=== PATIENT | female | born 1995 | race Caucasian/White ===

== ENCOUNTER → 2024-07-12 | Outpatient (CLI) | payer OTHER | END | disposition home or self-care (01) | LOC: TOM 10:37 | DX: N70.11 Chronic salpingitis (principal) ==

== ENCOUNTER 2024-11-12 09:02 | Outpatient (CLI) | payer OTHER | END 2024-11-12 09:06 | disposition home or self-care (01) | LOC: PRENATAL 09:02 | PROVIDERS: ATTEND Obstetrics & Gynecology Maternal & Fetal Medicine | DX: O36.80X0 Pregnancy with inconclusive fetal viability, not applicable or unspecified (principal); Z36.9 Encounter for antenatal screening, unspecified; Z36.82 Encounter for antenatal screening for nuchal translucency; O99.891 Other specified diseases and conditions complicating pregnancy; O24.419 Gestational diabetes mellitus in pregnancy, unspecified control; Z3A.12 12 weeks gestation of pregnancy ==

== ENCOUNTER → 2025-01-06 07:59 | Outpatient (CLI) | payer OTHER | END | disposition home or self-care (01) | LOC: PRENATAL 07:59 | PROVIDERS: ATTEND Obstetrics & Gynecology Maternal & Fetal Medicine | DX: O44.00 Complete placenta previa NOS or without hemorrhage, unspecified trimester (principal); O24.419 Gestational diabetes mellitus in pregnancy, unspecified control; Z3A.20 20 weeks gestation of pregnancy ==

== ENCOUNTER 2025-03-04 08:29 | Outpatient (CLI) | payer OTHER | END 2025-03-04 08:30 | disposition home or self-care (01) | LOC: PRENATAL 08:29 | PROVIDERS: ATTEND Obstetrics & Gynecology Maternal & Fetal Medicine | DX: O26.849 Uterine size-date discrepancy, unspecified trimester (principal); O24.419 Gestational diabetes mellitus in pregnancy, unspecified control; Z3A.28 28 weeks gestation of pregnancy ==

== ENCOUNTER → 2025-04-15 13:54 | Outpatient (CLI) | payer OTHER | END | disposition home or self-care (01) | LOC: PRENATAL 13:54 | PROVIDERS: ATTEND Obstetrics & Gynecology Maternal & Fetal Medicine | DX: O26.849 Uterine size-date discrepancy, unspecified trimester (principal); O36.8199 Decreased fetal movements, unspecified trimester, other fetus; O24.419 Gestational diabetes mellitus in pregnancy, unspecified control; Z3A.35 35 weeks gestation of pregnancy ==

== ENCOUNTER 2025-05-10 00:15 | Outpatient (CLI) | payer OTHER ==
[2025-05-09 23:19] VITALS: BP 129/84
[2025-05-10] MEDS ORDERED: CHILDREN'S ASPI81 MG PO (00:41)
[2025-05-10] MEDS ORDERED: PRENATAL CAPLE1 EAC1 PO (00:41)
[2025-05-10] MEDS ORDERED: PROMETHAZINE HCL 25 MG/ML AMPUL IV PRN (00:45)
[2025-05-10] MEDS ORDERED: SODIUM CHLORIDE 0.45 % 500 ML IV SCH (00:45)
[2025-05-10] MEDS ORDERED: FAMOTIDINE/PF 20 MG/2 ML VIAL IV PUSH SCH (00:45)
[2025-05-10 01:43] LABS: BASO % 0.3 % (0.1-1.2); EOS # 0.06 (0.04-0.54); EOS % 0.6 % (0.7-7.0); LYMPH # 1.42 (1.18-3.74); LYMPH % 13.6 % (19.3-53.1); MEAN PLATELET VOLUME 11.70 fl (9.4-12.4); MONO # 0.62 (0.24-0.82); MONO % 5.9 % (4.7-12.5); NEUT # 8.28 (1.56-6.13); NEUT % 79.2 % (34.0-71.1); RED CELL DISTRIBUTION WIDTH 16.6 % (11.6-14.4)
[2025-05-10 02:14] LABS: URINE APPEARANCE Cloudy; URINE BILIRRUBIN Negative (NEGATIVE); URINE BLOOD Negative; URINE COLOR Yellow; URINE GLUCOSE Negative (NEGATIVE); URINE KETONE Negative (NEGATIVE); URINE LEUKOCYTE Large; URINE NITRATE Negative; URINE PROTEIN 30 (NEGATIVE); URINE UROBILINOGEN 0.2 E.U./dl
[2025-05-10 02:17] LABS: URINE BACTERIA 2681.8 uL (0.0-1933); URINE CAST 7.03 uL (0.0-1.40); URINE EPITHELIAL CELLS 96.9 uL (0.0-38.8); URINE WBC 186.5 uL (0.0-23.2)
[2025-05-10 02:35] LABS: INR < 0.93
[2025-05-10 02:38] LABS: ALT/SGPT 51.0 U/L (12-78); AST/SGOT 54.0 U/L (15-37); BILIRUBIN TOTAL 0.31 mg/dL (0.3-1.2); BUN CREA RATIO 12.0 (7.0-25.0); CREATININE SERUM 0.74 mg/dL (0.55-1.02); GFR 92.15; GLOBULINA 3.4 G/DL (2.4-3.5); GLUCOSE FASTING 72.0 mg/dL (65-100); OSMOLALITY SERUM 280.0 MOSM/KG (275-295)
[2025-05-10 02:43] LABS: URINE RBC 1.9 uL (0.0-20.8)
[2025-05-10 04:12] VITALS: BP 115/74
[2025-05-10 07:18] VITALS: BP 121/78
[2025-05-10] MEDS ORDERED: CEFAZOLIN SODIUM 1,000 MG VIAL IV STA (09:25)
[2025-05-10 12:00] VITALS: BP 120/62
== END 2025-05-10 17:08 | disposition home or self-care (01) ==
LOC: OBS/DEL 00:15
PROVIDERS: ATTEND Obstetrics & Gynecology
DX: O26.893 Other specified pregnancy related conditions, third trimester (principal); R11.10 Vomiting, unspecified; Z3A.38 38 weeks gestation of pregnancy

== ENCOUNTER 2025-05-15 13:45 | Inpatient (IN) | payer OTHER ==
[~2025-05-15] VITALS: Ht 152.4 cm; Wt 3.2 kg
[~2025-05-15 13:45] MED LIST: CHILDREN'S ASPI81 MG PO; PRENATAL CAPLE1 EAC1 PO
[2025-05-20 06:30] VITALS: BP 137/80
[2025-05-20] MEDS ORDERED: RINGERS SOLUTION,LACTATED 1,000 ML IV SCH (06:45)
[2025-05-20 07:25] VITALS: BP 142/69
[2025-05-20] MEDS ORDERED: MISOPROSTOL 50 MCG TABLET VAG ONE (10:00)
[2025-05-20 12:00] VITALS: BP 112/65
[2025-05-20] MEDS ORDERED: MISOPROSTOL 25 MCG/4 ML GEL.W.APPL VAG ONE (14:45)
[2025-05-20 15:07] VITALS: BP 124/63
[2025-05-20 19:19] VITALS: BP 138/79
[2025-05-20 23:16] VITALS: BP 103/52
[2025-05-21 03:29] VITALS: BP 131/85
[2025-05-21 07:30] VITALS: BP 139/74
[2025-05-21] MEDS ORDERED: OXYTOCIN 500 ML IV SCH (08:30)
[2025-05-21] MEDS ORDERED: CEFAZOLIN SODIUM 1,000 MG VIAL IV ONE (16:00)
[2025-05-21] MEDS ORDERED: KETOROLAC TROMETHAMINE 30 MG VIAL IV PRN (18:15)
[2025-05-21] MEDS ORDERED: ERYTHROMYCIN BASE OPHT 1GM EACH TUBE OP ONE (18:15)
[2025-05-21] MEDS ORDERED: MORPHINE SULFATE 4 MG/ML VIAL IV PRN (18:15)
[2025-05-21] MEDS ORDERED: OXYTOCIN 10 UNITS/ML VIAL IV ONE (18:15)
[2025-05-21] MEDS ORDERED: OXYTOCIN 1,000 ML IV SCH (18:15)
[2025-05-21] MEDS ORDERED: PROMETHAZINE HCL 25 MG/ML AMPUL IV PRN (18:15)
[2025-05-21 21:41] VITALS: BP 140/80
[2025-05-22 01:14] LABS: BASO % 0.3 % (0.1-1.2); EOS # 0.01 (0.04-0.54); EOS % 0.1 % (0.7-7.0); LYMPH # 1.54 (1.18-3.74); LYMPH % 13.1 % (19.3-53.1); MEAN PLATELET VOLUME 12.30 fl (9.4-12.4); MONO # 0.77 (0.24-0.82); MONO % 6.5 % (4.7-12.5); NEUT # 9.36 (1.56-6.13); NEUT % 79.5 % (34.0-71.1); RED CELL DISTRIBUTION WIDTH 16.6 % (11.6-14.4)
[2025-05-22 02:12] VITALS: BP 140/87
[2025-05-22] MEDS ORDERED: ACETAMINOPHEN WITH CODEINE 1 UDTAB TABLET PO PRN (07:00)
[2025-05-22 08:00] VITALS: BP 145/81
[2025-05-22] MEDS ORDERED: DOCUSATE SODIUM 100MG CAP PO SCH (09:00)
[2025-05-22] MEDS ORDERED: SIMETHICONE 125 MG CAPSULE PO SCH (09:00)
[2025-05-22 17:12] VITALS: BP 140/80
[2025-05-23 02:38] VITALS: BP 123/80
[2025-05-23 08:53] VITALS: BP 150/95
[2025-05-23 16:16] VITALS: BP 130/80
[2025-05-24] VITALS: BP 139/80
[2025-05-24 08:15] VITALS: BP 134/82
[2025-05-24] MEDS ORDERED: COLACE100 MG PO (11:52)
[2025-05-24] MEDS ORDERED: FUSION PLUS CA1 EACH PO (11:53)
[2025-05-24] MEDS ORDERED: SIMETHICONE125 M1 PO (11:53)
[2025-05-24] MEDS ORDERED: IBU800 MG PO (11:53)
== END 2025-05-24 14:08 | disposition home or self-care (01) | DRG 788 ==
LOC: LDR 05-20 06:05 → O/R 05-21 16:57 → OB/GYN 05-21 19:17
PROVIDERS: ADMIT Student in an Organized Health Care Education/Training Program; ATTEND Student in an Organized Health Care Education/Training Program
PROC: 4A1HXCZ Monitoring of Products of Conception, Cardiac Rate, External Approach (ICD-10-PCS; 2025-05-20)
PROC: 10D00Z1 Extraction of Products of Conception, Low, Open Approach (ICD-10-PCS; principal; 2025-05-21 19:30)
DX: O82 Encounter for cesarean delivery without indication (principal); Z3A.39 39 weeks gestation of pregnancy; Z37.0 Single live birth